=== PATIENT | female | born 1945 | race Caucasian/White ===

== ENCOUNTER → 2017-04-21 | Outpatient (CLI) | payer OTHER, MEDICAID ==
--- NOTE | 2017-04-21 09:16 | PCVCIMAG ---
EXAM: BILATERAL CAROTID DUPLEX INDICATION: Carotid Occlusive Disease. FINDINGS: Doppler Measurements (centimeters per second): RIGHT: Peak CCA-82, Peak ECA-78, Diastolic ICA-32, Peak ICA-118, ICA/CCA Ratio-1.4. LEFT: Peak CCA-97, Peak ECA-98, Diastolic ICA-81, Peak ICA-216, ICA/CCA Ratio-2.2. RIGHT CAROTID: The carotid bulb has moderate plaque. The proximal internal carotid artery shows <40% stenosis. The common carotid artery shows no significant stenosis. The external carotid artery shows no significant stenosis. LEFT CAROTID: The carotid bulb has moderate plaque. The proximal internal carotid artery shows 70% stenosis. The common carotid artery shows no significant stenosis. The external carotid artery shows no significant stenosis. Antegrade flow in both vertebral arteries. IMPRESSION: <40% stenosis of the right internal carotid artery with moderate plaque. 70% stenosis of the left internal carotid artery with moderate plaque. Follow up in 6 months is suggested. LOC:[id number]
--- NOTE | 2017-04-21 09:18 | PCVCIMAG ---
EXAM: BILATERAL RENAL ULTRASOUND AND BILATERAL RENAL DUPLEX INDICATION: Hypertension FINDINGS: Right kidney: Length measures 10.0 cm. No hydronephrosis or extensive renal scarring. Right renal duplex: Adequate technical quality. No sonographic evidence of renal artery stenosis. The aortic to renal artery ratio is 1.2. The renal vein is patent. Left kidney: Length measures 10.2 cm. No hydronephrosis or extensive renal scarring. Left renal duplex: Adequate technical quality. No sonographic evidence of renal artery stenosis. The aortic to renal artery ratio is 1.0. The renal vein is patent. Bladder: No obvious abnormalities. IMPRESSION: No significant renal artery stenosis. No hydronephrosis bilaterally. Incidental note is made of 2 right and 2 left renal arteries. LOC:[id number]
--- NOTE | 2017-04-21 12:47 | PCVCIMAG ---
APPROVED REPORT Study performed: 04/21/2017 09:20:02 EXAM: Comprehensive 2D, Doppler, and color-flow Echocardiogram Patient Location: Echo lab Status: routine BSA: 1.62 HR: 55 bpmBP: 126/60 mmHg Rhythm: NSR Other Information Study Quality: GoodAdequate Indications Pre-Chemo CABG, CAD, HTN. 2D Dimensions LVEF(%): 73.44 (>50%) IVSd: 8.30 (7-11mm)LVOT Diam: 17.69 (18-24mm) LVDd: 41.61 mm PWd: 9.13 (7-11mm)Ascending Ao: 23.52 (22-36mm) LVDs: 24.12 (25-40mm) Left Atrium: 34.01 (27-40mm) Aortic Root: 25.85 mm LV Single Plane 4CH: 63.68 % LV Single Plane 2CH: 70.78 %Arredondo's LVEF: 67.23 % Biplane EF: 67.7 % Volumes Left Atrial Volume (Systole) Single Plane 4CH: 39.33 mLSingle Plane 2CH: 43.38 mL LA ESV Index: 27.00 mL/m2 Aortic Valve AoV Peak Johnny.: 1.63 m/s AO Peak Gr.: 10.62 mmHgLVOT Max P.34 mmHg LVOT Max V: 1.36 m/s RUPESH Vmax: 2.04 cm2 Mitral Valve E/A Ratio: 1.0 MV Decel. Time: 302.54 ms MV E Max Johnny.: 0.91 m/s MV A Johnny.: 0.91 m/s IVRT: 128.03 ms TDI E/Lateral E': 15.17E/Medial E': 18.20 Medial E' Johnny.: 0.05 m/s Lateral E' Johnny.: 0.06 m/s Pulmonary Valve PV Peak Gr.: 3.96 mmHg Pulmonary Vein P Vein S: 0.40 m/sP Vein A: 0.31 m/s P Vein D: 0.44 m/sP Vein A Dur.: 90.0 msec P Vein S/D Ratio: 0.91 Tricuspid Valve TR Peak Johnny.: 2.71 m/s TR Peak Gr.: 29.47 mmHg Left Ventricle Mild apical and basal inferior hypokinesis. There is normal left ventricular wall thickness. Left ventricular systolic function is normal. The left ventricular ejection fraction is within the normal range. LVEF is 55-60%. The left ventricular diastolic function is normal. Right Ventricle The right ventricle is normal size. The right ventricular systolic function is normal. Atria The left atrium size is normal. The right atrium size is normal. Aortic Valve The aortic valve is normal in structure. No aortic regurgitation is present. There is no aortic valvular stenosis. Mitral Valve Mild mitral annular calcification. Mild mitral regurgitation. No evidence of mitral valve stenosis. Tricuspid Valve The tricuspid valve is normal in structure. Trace tricuspid regurgitation. Pulmonary artery pressure is 37mmhg. Pulmonic Valve The pulmonary valve is normal in structure. There is no pulmonic valvular regurgitation. Great Vessels The aortic root is normal in size. IVC is normal in size and collapses with >50% inspiration Pericardium There is no pericardial effusion. <Conclusion> Left ventricular systolic function is normal. The left ventricular ejection fraction is within the normal range. Mild apical and basal inferior hypokinesis. LVEF is 55-60%. The left ventricular diastolic function is normal. The right ventricle is normal size. The aortic valve is normal in structure. Mild mitral regurgitation. The left atrium size is normal. Trace tricuspid regurgitation. Pulmonary artery pressure is 37mmhg. There is no pericardial effusion.
== END | disposition home or self-care (01) ==
LOC: PCVCIMAG 08:03
PROVIDERS: ATTEND Internal Medicine Cardiovascular Disease
DX: Z01.810 Encounter for preprocedural cardiovascular examination (principal); I08.1 Rheumatic disorders of both mitral and tricuspid valves; I65.23 Occlusion and stenosis of bilateral carotid arteries; I44.7 Left bundle-branch block, unspecified; I10 Essential (primary) hypertension; I70.1 Atherosclerosis of renal artery; I25.10 Atherosclerotic heart disease of native coronary artery without angina pectoris; E78.00 Pure hypercholesterolemia, unspecified; I25.5 Ischemic cardiomyopathy; M19.90 Unspecified osteoarthritis, unspecified site; I42.9 Cardiomyopathy, unspecified; Z95.1 Presence of aortocoronary bypass graft; Z91.041 Radiographic dye allergy status; Z88.6 Allergy status to analgesic agent
CPT/HCPCS: 76770; 80061; 93005; 93306; 93880; 93975; G0463

== ENCOUNTER → 2018-09-07 | Outpatient (CLI) | payer OTHER, MEDICAID | END | disposition home or self-care (01) | LOC: PCVCIMAG 14:44 | PROVIDERS: ATTEND Internal Medicine Cardiovascular Disease | DX: I65.23 Occlusion and stenosis of bilateral carotid arteries (principal); E78.00 Pure hypercholesterolemia, unspecified; E78.1 Pure hyperglyceridemia; E78.5 Hyperlipidemia, unspecified; Z95.1 Presence of aortocoronary bypass graft | CPT/HCPCS: 93880 ==

== ENCOUNTER → 2018-09-15 | Outpatient (CLI) | payer OTHER, MEDICAID ==
[~2018-09-15] MED LIST: DIAZEPAM 10 MG TABLET. ONE; FAMOTIDINE 20 MG/2 ML VIAL ONE; HEPARIN for ARTERIAL LINE 1,500 ML ONE; IOHEXOL 300 MG/ML 100ML VIAL. ONE; IOHEXOL 350 MG/ML 100 ML VIAL. ONE; IV NORMAL SALINE 500ML BAG 500 ML ONE; LIDOCAINE 1%/EPI 1:100,000 20 ML VIAL. ONE; MIDAZOLAM HCL/PF 2 MG/2 ML VIAL. ONE; diphenhydrAMINE 50 MG/ML VIAL ONE; fentaNYL PF VIAL 100 MCG/2 ML VIAL ONE; hydrALAZINE 20 MG/ML VIAL. ONE; methylPREDNISolone SOD SUCC PF 125 MG/2 ML VIAL. ONE
--- NOTE | 2018-09-15 11:58 | PCVCINTER ---
EXAM: 1. CERVICOEPHALIC ARCH AORTOGRAM. 2. BILATERAL CAROTID ANGIOGRAPHY. 3. LEFT VERTEBROBASILAR ANGIOGRAPHY. 4. BILATERAL RENAL ANGIOGRAPHY. 5. BILATERAL ILEOFEMORAL ANGIOGRAPHY. INDICATION: Carotid occlusive disease. Left subclavian steal. Hypertension. Renal atherosclerosis. PROCEDURE: Procedure and risks of the procedures listed above were discussed with the patient and consent obtained. Risks including but not limited to bleeding, infection, stroke, vascular injury, neurologic injury, embolization, allergic reactions, and contrast-induced nephropathy requiring dialysis were discussed as appropriate and consent obtained. Patient was placed on the angiography table. IV conscious sedation was used throughout procedure with appropriate monitoring from 10:15 AM through 11:00 AM. The right groin was prepped and draped in the normal sterile fashion. Ultrasound was used to interrogate the right groin and demonstrate the right common femoral artery. An ultrasound image was saved. Under ultrasound guidance a 21 gauge needle was used to gain access into the right common femoral artery and a 6F vascular sheath was placed. Catheter was placed into the ascending aorta and cervicocephalic aortic arch angiogram performed. Catheter was placed into the suprarenal abdominal aorta and abdominal aortic angiogram performed. Catheter was placed at the aortic bifurcation and bilateral iliofemoral angiography performed. Catheter was placed into the right common carotid artery and right common carotid angiogram performed. Catheter was placed into the left common carotid artery and left common carotid angiogram performed. Catheter was placed into the left subclavian artery and left vertebro-basilar angiogram performed. Catheter was placed into the right renal artery and right renal angiogram performed. Catheter was placed into the left renal artery and left renal angiogram performed. Dr. Landry joined the procedure and he then performed coronary angiography. Please see his separate dictation for full details. Catheters and wires were removed and hemostasis obtained using the FISH device. No immediate complications. FINDINGS: Cervicocephalic arch aortogram: The origins of the great vessels show good patency. Both vertebral arteries are normal in size with cranial directed flow. The thoracic aortic arch is within normal limits. Right common carotid angiogram: This injection fills the right anterior and middle cerebral distributions which are otherwise unremarkable. The petrous and cavernous carotid arteries are patent. Mild plaque proximal internal carotid artery does not cause significant stenosis. The common and external carotid arteries are patent. Left common carotid angiogram: This injection fills the left anterior and middle cerebral distributions which are normal in appearance. The cavernous and petrous carotid artery show good patency. 75% smooth stenosis at the origin of the internal carotid artery. The common and external carotid arteries are patent. Left vertebrobasilar angiogram: Left vertebral artery is patent as is the basilar artery and both posterior cerebral arteries. Abdominal aortogram: There are 2 right and 2 left renal arteries. Mild plaque infrarenal abdominal aorta without significant stenosis. Right renal angiogram: There are 2 renal arteries both showing minimal plaque in the proximal portion without significant stenosis. Left renal angiogram: There are 2 renal arteries both showing minimal plaque in the proximal portion without significant stenosis. Bilateral iliofemoral angiogram: The right and left common iliac arteries are patent. Both internal iliac arteries are patent. The right and left external iliac arteries show satisfactory patency. The right and left common femoral and profunda femoral arteries as well as the visualized portions of the upper superficial femoral arteries are patent. IMPRESSION: 75% smooth stenosis origin left internal carotid artery. Patient will be referred to Dr. Omer for further evaluation for carotid endarterectomy. No significant right carotid stenosis. LOC:[id number]
--- NOTE | 2018-09-15 18:03 | PCVCINTER ---
APPROVED REPORT Study performed: 09/15/2018 11:23:11 Patient Details Patient Status: Out-Patient Room #: 2 The patient is a 73 year-old Female Event Personnel Frantz Morgan MD, Flaco Jackson RT(R), Tiffanie Mcfarland RT(R)(), Terrell Llanos RN Risk Factors Arterial HypertensionDysplipidemia (Type: 1), Cerebrovascular Disease, Hypercholesterolemia, Last Creatanine 0.8Tobacco History (Never) Previous Procedures/Diagnoses Previous CABG, Previous CHFPrevious [place], CAD, LV dysfunction, Cerebrovascular disease, Previous FL, Hypertension, Arrhythmias - Intraventricular conduction->Left bundle-branch block (LBBB) Procedure Narrative The right coronary system was accessed and visualized with a JR4 catheter. The left coronary system was accessed and visualized with a JL4 catheter. The left ventricle was accessed and visualized with a Straight Pigtail catheter. Left ventriculogram was performed in YADAV projection. Closure device was deployed with a 6 Fr FISH. Hemostasis was obtained with manual pressure following sheath removal without any complications. The patient tolerated the procedure well and there were no complications associated with the procedure. There was no hematoma. Hemodynamics The aortic pressure is 101/61 mmHg with a mean of 71 mmHg. The left ventricular pressure is 90/4 mmHg with a mean of 9 mmHg. Conclusion #1 normal left ventricular size and systolic function EF 60-65% #2 left main mildly disease giving rise to an occluded circumflex and proximally occluded LAD #3 LAD is occluded after the first septal truss builder #4 circumflex is occluded proximally. There is left to left collateralization of an OM system and retrograde filling an occluded graft to the OM this would not be amenable to any intervention. #5 a KING to LAD is intact is well preserved diffusely diseased diseased LAD is briskly filled some retrograde filling of a possible marginal branch from the RCA. 30-40% ostial KING stenosis is noted not flow limiting #6 dominant right occluded #7 there is an SVG or radial graft to a diagonal system which remains intact relatively small diagonal branch with mild disease #8 apparent SVG to OM is occluded. #9 vein graft is intact and well-preserved to the PDA. Extensively filling the PDA and OTIS briskly. No occlusive disease Recommendations and plan: Continue aggressive risk factor modification. There is no indication for coronary intervention. Patient is cleared for carotid endarterectomy surgery. The [place] circumflex and the graft to the circumflex are not amenable to intervention. Circumflex OM is briskly filled via left to left collateralization.
== END | disposition home or self-care (01) ==
LOC: PCVCINTER 09:07
PROVIDERS: ATTEND Internal Medicine Cardiovascular Disease
DX: I65.23 Occlusion and stenosis of bilateral carotid arteries (principal); I25.10 Atherosclerotic heart disease of native coronary artery without angina pectoris; I70.1 Atherosclerosis of renal artery; I70.0 Atherosclerosis of aorta; E78.00 Pure hypercholesterolemia, unspecified; I25.5 Ischemic cardiomyopathy; I44.7 Left bundle-branch block, unspecified; Z95.1 Presence of aortocoronary bypass graft; Z82.49 Family history of ischemic heart disease and other diseases of the circulatory system; M19.90 Unspecified osteoarthritis, unspecified site; Z79.899 Other long term (current) drug therapy; Z88.6 Allergy status to analgesic agent; Z88.8 Allergy status to other drugs, medicaments and biological substances; I25.2 Old myocardial infarction; I11.0 Hypertensive heart disease with heart failure; I50.9 Heart failure, unspecified
CPT/HCPCS: 36223; 36225; 36252; 75630; 76937; 93459; 99152; 99153; C1751; C1760; C1769; C1894; J0360; J1200; J1644; J2250; J2930; J3010; J3490; J7040; Q9967; 93458